=== PATIENT | female | born 1970 | race Caucasian/White ===

== ENCOUNTER 2024-07-18 12:05 | Day surgery (SDC) | payer BC, SELFPAY ==
[2024-07-17 12:54] VITALS: BMI 40.7
[2024-07-18] VITALS (13 sets, daily range): BP systolic 126–153; BP diastolic 65–109; PULSE 62–80; RESP 12–22; TEMP 36.2–36.4; O2SAT 98–100; BMI 40.5
[2024-07-18] MEDS: RINGERS LACTATED 1000 ML 1,000 ML 125 ML IV (13:30)
[2024-07-18] MEDS: DiphenhydrAMINE INJ 50 MG/ML VIAL 25 MG IV (13:45)
[2024-07-18] MEDS: fentaNYL CIT INJ 50 mCg/ML AMP 2ML (ASD USE ONLY) IV (13:45)
[2024-07-18] MEDS: MIDAZOLAM INJ 1 MG/ML VIAL 2 ML (ASD USE ONLY) 2 MG IV (13:48)
--- NOTE | 2024-07-18 14:08 | SUR.PHASEII ---
PATIENT INTO RECOVERY WITH NO ACUTE DISTRESS NOTED, V/S STABLE, NO COMPLAINTS OF PAIN OR NAUSEA AT THIS TIME, PATIENT REPOSITIONS SELF. REPORT RECEIVED FROM RADHA RODRIGUEZ.
--- NOTE | 2024-07-18 14:40 | SUR.PHASEII ---
WAITING FOR PATIENT'S RIDE TO ARRIVE. PATIENT IS DRINKING APPLE JUICE WITH NO DIFFICULTY OR COMPLAINTS OF NAUSEA.
== END 2024-07-18 14:50 | disposition home or self-care (01) ==
PROVIDERS: PCP Family Medicine; Referring Provider Surgery; Visit Provider Surgery
PROC: 0DBE8ZX Excision of Large Intestine, Via Natural or Artificial Opening Endoscopic, Diagnostic (ICD-10-PCS; CPT 45380; principal; 2024-07-18 13:45)
DX: Z12.11 Encounter for screening for malignant neoplasm of colon (principal); Z86.0100 Personal history of colon polyps, unspecified; K63.5 Polyp of colon
CPT/HCPCS: 45380; 81025; A4649; J1200; J2250; J3010; J7120

== ENCOUNTER → 2025-01-13 | Outpatient (CLI) | payer BC, SELFPAY ==
--- NOTE | 2025-01-13 14:15 | XR_ITS ---
Examination: Screening digital mammography, bilateral Computer aided detection 3-D breast Tomosynthesis, bilateral Date and time of exam: January 13, 2025 1407 hours Compared to mammograms dating to September 06, 2018 Indication: Screening Technique: Nonmagnified MLO, CC views of the breasts to been obtained, reconstructed from 3-D Tomosynthesis images. R2 computer aided detection program utilized for evaluation of suspicious masses and/or abnormal calcifications. 3-D Tomosynthesis images obtained. Findings: Scattered areas of fibroglandular density. Benign calcifications. No interval suspicious masses Impression: BI-RADS category II: Benign Findings. Recommend 1 year follow-up mammogram.
== END | disposition home or self-care (01) ==
PROVIDERS: PCP Family Medicine; Referring Provider Family Medicine; Visit Provider Family Medicine
DX: Z12.31 Encounter for screening mammogram for malignant neoplasm of breast (principal); R92.323 Mammographic fibroglandular density, bilateral breasts; R92.1 Mammographic calcification found on diagnostic imaging of breast
CPT/HCPCS: 77063; 77067